=== PATIENT | male | born 1970 | race Caucasian/White ===

== ENCOUNTER 2023-05-31 17:41 | Emergency (ER) | payer BC, SELFPAY ==
--- NOTE | 2023-05-31 17:49 | ED.URI ---
HPI - URI/Sore Throat General Chief Complaint: Upper Respiratory Infection Stated Complaint: flu like symptoms Time Seen by Provider: 05/31/23 17:49 Source: patient Mode of arrival: ambulatory Limitations: no limitations History of Present Illness HPI Narrative: Yaw is a 53-year-old male patient presenting to the clinic today with complaints of cough, body aches, chills, and nasal congestion times 1 day. Patient reports that he thinks he may have flu MD elicited complaint: cough and nasal congestion Related Data Allergies Allergy/AdvReac Type Severity Reaction Status Date / Time acetaminophen Allergy Mild Unknown Verified 05/31/23 18:06 hydrocodone Allergy Mild Unknown Verified 05/31/23 18:06 ibuprofen Allergy Mild Unknown Verified 05/31/23 18:06 Penicillins Allergy Mild Unknown Verified 05/31/23 18:06 NUPRIN Allergy Mild Unknown Uncoded 12/15/19 12:18 Review of Systems Review of Systems: Pertinent positives per HPI. Patient denies any rash, headache, visual changes, dizziness, shortness of breath, chest pain, palpitations, nausea, vomiting, diarrhea, constipation, abdominal pain, or any urinary issues. [facility] Past Medical History Medical History Back pain Bulging lumbar disc Dyslipidemia (~10/18/17) Erectile dysfunction Lumbar back pain with radiculopathy affecting lower extremity Lumbar back pain with radiculopathy affecting right lower extremity Marijuana smoker Neck pain Surgical History Surgical History No pertinent past surgical history Family History Family History Other Diabetes mellitus Family history of Parkinson's disease Social History Social History Smoking status: Heavy tobacco smoker Second hand tobacco smoke exposure: Yes Additional smoking assessment comments: consumes 1 pack daily Alcohol intake: never Alcohol use details: consume 1 glass of mixed drink, rum once monthly Substance use: never Substance use type: marijuana Gender identity (if verbalized by the patient): Male Comments At the time of my signature, I reviewed and agree with the nursing past medical, surgical, social, and family history. There is no relevant family history pertinent to the patient complaint. Exam Narrative: General: Well-developed, well nourished, in no apparent distress Head: Normocephalic, atraumatic Eyes: Pupils equally round and reactive to light bilaterally, EOM intact, sclera and conjunctive clear, no discharge, lids normal Ears: TMs intact and clear, ear canals clear, no drainage, grossly hearing normal. Nose: Nares patent, clear discharge, no inflammation, no sinus tenderness. Mouth: Oral pharynx without lesions or masses, good dentition, MMM. Neck: Supple, trachea midline, no enlargement of anterior or posterior cervical nodes, no thyroid masses or goiter palpable. Cardio: Regular rate and rhythm, s1 and s2 normal, no murmur appreciated. Resp: Lung sounds diminished, no rhonchi, rales, wheezing or rubs Course Course Emergency Course: Portions of this record may have been created with voice recognition software. Level of Care: Express Care Visit Vital Signs Vital signs: Vital signs reviewed MDM - URI/Sore Throat MDM Narrative Medical decision making narrative: At the time of visit patient is resting comfortably on the exam table. Patient appears to be nontoxic. Labs: COVID and influenza testing was performed and was negative in the clinic today. Plan: I suspect patient has URI/viral syndrome. Prescription for albuterol inhaler was sent to the pharmacy. Supportive measures were discussed with the patient and they voiced understanding discharge instructions and agrees to treatment plan. Return precautions reviewed Diffe
[2023-05-31 18:00] VITALS: BP 130/83; PULSE 88; RESP 18; TEMP 36.6; O2SAT 99
== END 2023-05-31 18:30 | disposition home or self-care (01) ==
PROVIDERS: Emergency Provider Nurse Practitioner Family
DX: B34.9 Viral infection, unspecified (principal); J06.9 Acute upper respiratory infection, unspecified; Z20.822 Contact with and (suspected) exposure to COVID-19; F17.290 Nicotine dependence, other tobacco product, uncomplicated
CPT/HCPCS: 87426; 87804; 99213; G0463